=== PATIENT | male | born 2000 | race Two or more races ===

== ENCOUNTER 2019-09-06 17:06 | Emergency (ER) | payer OTHER ==
[~2019-09-06] VITALS: Ht 170.2 cm; Wt 65.8 kg
[2019-09-06 17:22] VITALS: BP 125/86
== END 2019-09-06 19:05 | disposition home or self-care (01) ==
LOC: ER 17:06
DX: T16.1XXA Foreign body in right ear, initial encounter (principal); X58.XXXA Exposure to other specified factors, initial encounter; Y93.89 Activity, other specified; Y92.89 Other specified places as the place of occurrence of the external cause; Y99.8 Other external cause status
CPT/HCPCS: 69200